=== PATIENT | female | born 1960 | race Caucasian/White ===

== ENCOUNTER 2016-03-17 19:27 | Emergency (ER) | payer OTHER ==
[~2016-03-17] VITALS: Ht 152.4 cm; Wt 62.1 kg
[2016-03-17 19:54] LABS: HEMATOCRIT 43.1 % (36.0-46.0); MCH 31.7 PG (29.0-34.0); MCHC 33.9 G/DL (30.0-36.0); MCV 93.7 FL (83-99); MEAN PLAT.VOLUME 9.7 uM^3 (9.5-12.4); PLATELET COUNT 321 K/uL (156-360); RBC DIS.WIDTH-CV 12.9 % (11.8-14.6); RBC DIS.WIDTH-SD 43.2 % (39-53); WHITE BLOOD COUNT 10.5 K/uL (4.1-10.2)
[2016-03-17 19:58] LABS: ADD MIUA? NO; BILIRUBIN NEGATIVE; BLOOD NEGATIVE; GLUCOSE (STRIP) NEGATIVE; KETONES NEGATIVE; LEUKOCYTES NEGATIVE; NITRITE NEGATIVE; PH, URINE 6.5 (5-8); PROTEIN (STRIP) NEGATIVE; SPECIFIC GRAVITY 1.015 (1.000-1.030); UCUL ADDED? NO; UROBILINOGEN 0.2 MG/DL (0.2-1.0)
[2016-03-17 20:00] LABS: COLOR COLORLESS ((YELLOW))
[2016-03-17 20:05] LABS: CHLORIDE 105 mEq/L (99-109); POTASSIUM 4.2 mEq/L (3.7-5.4); SODIUM 140 mEq/L (136-147)
[2016-03-17 20:08] LABS: GLUCOSE 101 mg/dL (70-99)
[2016-03-17] MEDS ORDERED: PROAIR RESPICL90 MCG IH (20:08)
[2016-03-17 20:09] LABS: ANION GAP 13 MEQ/L (2-14)
[2016-03-17] MEDS ORDERED: ATORVASTATIN CA80 MG PO (20:09)
[2016-03-17 20:10] LABS: TOTAL BILIRUBIN 0.2 mg/dL (0.0-1.0)
[2016-03-17 20:11] LABS: ALKALINE PHOSPHATASE 115 IU/L (3-129)
[2016-03-17] MEDS ORDERED: DICYCLOMINE HCL20 MG PO (20:11)
[2016-03-17] MEDS ORDERED: NOVOLOG PE100 UNITS/ SC (20:11)
[2016-03-17 20:12] LABS: GFR ESTIMATE (CALCULATED) > 59 mL/min/; UREA NITROGEN (BUN) 16 mg/dL (9-23)
[2016-03-17] MEDS ORDERED: LISINOPRIL5 MG PO (20:12)
[2016-03-17] MEDS ORDERED: LANTUS 3 M100 UNITS1 SC (20:12)
[2016-03-17] MEDS ORDERED: METFORMIN HCL1000 MG PO (20:12)
[2016-03-17] MEDS ORDERED: PROTONIX40 MG PO (20:13)
[2016-03-17] MEDS ORDERED: PRIMIDONE50 MG PO (20:13)
[2016-03-17] MEDS ORDERED: DITROPAN XL10 MG PO (20:13)
[2016-03-17 20:21] LABS: QUANTITATIVE HCG < 4.0 MIU/ML
[2016-03-17 21:10] LABS: LIPASE 52 U/L (1.0-51.0)
[2016-03-17] MEDS ORDERED: CITALOPRAM HBR20 MG PO (21:47)
[2016-03-17] MEDS ORDERED: PEPCID20 MG PO (22:07)
[2016-03-17] MEDS ORDERED: BENTYL20 MG PO (22:07)
[2016-03-17 22:50] VITALS: BP 137/91
== END 2016-03-17 22:51 | disposition home or self-care (01) ==
LOC: EME 19:27
DX: R10.11 Right upper quadrant pain (principal); G89.29 Other chronic pain; R11.0 Nausea; R42 Dizziness and giddiness; F17.200 Nicotine dependence, unspecified, uncomplicated
CPT/HCPCS: 74177; 80053; 81003; 83690; 84702; 85027; 99281; 99285; J7030; S0028